=== PATIENT | male | born 2000 | race Caucasian/White ===

== ENCOUNTER 2022-01-23 20:41 | Emergency (ER) | payer OTHER, SELFPAY ==
[2022-01-23 20:46] VITALS: BP 144/82; PULSE 68; RESP 20; TEMP 36.8; O2SAT 98
--- NOTE | 2022-01-23 21:29 | ED_ITS ---
HPI - Abdominal Pain General Chief Complaint: Abdominal Pain Stated Complaint: Abdominal Pain Time Seen by Provider: 01/23/22 21:12 History of Present Illness HPI narrative: This 21-year-old male comes in with his mother because of abdominal pain. He was seen at [facility] emergency room a couple days ago at which time he had a CT scan and labs drawn. He was diagnosed with epiploic appendagitis. He comes in because he is not sure that he believes this diagnosis and states that he is having persistent pain in his left lower quadrant. He has been taking ibuprofen. He does not report any fevers. He has he does not have any blood in the toilet. His diet has been normal. Review of Systems Status of ROS Reports: 10 or more systems reviewed and unremarkable except as noted in History and below Narrative Constitutional: No fevers, no weight gain or loss. Eyes: No discharge. No vision changes. HENT: No congestion, no sore throat, no ear pain. Cardiovascular: No chest pain, no palpitations. Respiratory: No shortness of breath, no wheezes, no cough. Gastrointestinal: No vomiting, no diarrhea. Left lower quadrant abdominal pain as described above. Genitourinary: No dysuria, no hematuria. Musculoskeletal: Normal range of motion. Skin: No rashes, no pruritis. Neurological: No dizziness, weakness, sensory change, speech change. Endo/Heme/Allergies: No bruising or bleeding. No polydipsia. Pysch: no suicidality, no anxiety, no insomnia. All other systems reviewed and are negative. Exam Narrative: Exam Narrative: Constitutional: Well-developed, well-nourished, no acute distress. HEENT: Normocephalic, atraumatic. Neck: Normal range of motion. Nontender. Supple. Heart: Regular. No murmurs. Normal rate. Intact distal pulses. Lungs: Clear to auscultation. No chest discomfort. No wheezes, rhonchi, or rales. Abdomen: Normal bowel sounds. Tenderness is localized in the left lower quadrant. No rebound tenderness. Genitalia: Deferred. Back: No midline tenderness. Normal range of motion. Extremities: Normal range of motion. No injury. Skin: Intact. No rash. Warm. No erythema or pallor. Neurologic: No altered sensation. No weakness. Alert and oriented. Psychiatric: No suicidality. No anxiety or depression. No insomnia. Nursing notes and vitals signs are reviewed. Const: Vital Signs, click to edit/add: Vital Signs - 24 hr 01/23/22 20:46 Temperature 98.2 F Pulse Rate [Right Pulse Oximeter] 68 Respiratory Rate 20 Blood Pressure [Ri ght Upper Arm] 144/82 H Pulse Oximetry 98 Course Vital Signs Vital signs: Initial Vital Signs Temperature 98.2 F 01/23/22 20:46 Temperature Source Temporal Artery Scan 01/23/22 20:46 Pulse Rate 68 01/23/22 20:46 Pulse Rhythm 01/23/22 20:46 Respiratory Rate 20 01/23/22 20:46 Blood Pressure 144/82 H 01/23/22 20:46 Blood Pressure Mean 102 01/23/22 20:46 Blood Pressure Position Sitting 01/23/22 20:46 Pulse Oximetry 98 01/23/22 20:46 Oxygen Delivery Method 01/23/22 20:46 Vital Signs Temperature 98.2 F 01/23/22 20:46 Pulse Rate 68 01/23/22 20:46 Respiratory Rate 20 01/23/22 20:46 Blood Pressure 144/82 H 01/23/22 20:46 Pulse Oximetry 98 01/23/22 20:46 Temperature 98.2 F 01/23/22 20:46 Pulse Rate 68 01/23/22 20:46 Respiratory Rate 20 01/23/22 20:46 Blood Pressure 144/82 H 01/23/22 20:46 Pulse Oximetry 98 01/23/22 20:46 MDM - Abdominal Pain MDM Narrative Medical decision making narrative: This patient comes in with abdominal pain over the past several days. He did have a CT scan and was diagnosed with epiploic appendagitis. I did review lab results and imaging report from this encounter. I reaffirmed these results as it does seem to fit the patient's symptoms. He is not showing signs or symptoms of an acute abdomen. I did describe such symptoms that would need a further evaluation. The patient received a prescription for Toradol and a few tablets of [place] for additional pain relief. Discharge Plan Discharge Clinical Impression: Epiploic appendagitis Patient Disposition: Home, Self-Care Condition: Stable Additional Instructions: Take medication as prescribed and needed. Return if worsening symptoms occur. Follow up with MD otherwise as needed. Stand Alone Forms: [employer] Info Instructions
== END 2022-01-23 22:02 | disposition home or self-care (01) ==
LOC: ED 21:47
PROVIDERS: Emergency Provider Emergency Medicine Emergency Medical Services
DX: K63.89 Other specified diseases of intestine (principal)
CPT/HCPCS: 99284